=== PATIENT | male | born 1985 | race Caucasian/White ===

== ENCOUNTER 2025-04-09 08:42 | Emergency (ER) | payer SELFPAY ==
[2025-04-09 08:45] VITALS: BP 135/97; PULSE 104; RESP 20; TEMP 36.8; O2SAT 99
--- NOTE | 2025-04-09 08:46 | ED_ITS ---
HPI - URI/Sore Throat General Chief Complaint: Upper Respiratory Infection Stated Complaint: cough Time Seen by Provider: 04/09/25 08:45 Source: patient Mode of arrival: ambulatory Limitations: no limitations History of Present Illness HPI Narrative: patient presents with sore throat, stuffy nose, postnasal discharge and coughing started yesterday. Positive sick contact to at least 5 people who have similar symptoms in the last few days. He denies any fever or vomiting or abdominal pain or shortness of breath or chest pain or headache. Related Data Home Medications ?Medication ?Instructions ?Recorded ?Confirmed ?Last Taken ?Type No Home Medications 04/09/25 04/09/25 U nknown History Allergies Allergy/AdvReac Type Severity Reaction Status Date / Time No Known Allergies Allergy Verified 04/09/25 09:34 Review of Systems Review of Systems: All systems reviewed & are unremarkable except as noted in HPI and below Exam Narrative: General appearance: Well-developed, well-nourished Skin: Normal color Head: Normocephalic, nontraumatic Eyes: Clear conjunctiva ENT: Oropharynx normal, ears normal, nose normal Neck: Supple, nontender Chest and respiratory: Airway patent, no respiratory distress, no accessory muscle use Heart: Regular rate/rhythm Abdomen: Soft, nontender, no organomegaly, quiet bowel sounds Vascular: Normal peripheral pulses, normal capillary refill. Musculoskeletal: Normal range of motion, nontender back Neurologic: Alert and oriented ?3, [employer] is normal as tested, no gross motor deficit Course Vital Signs Vital signs: Vital Signs Temperature 36.8 C 04/09/25 08:45 Pulse Rate 104 H 04/09/25 08:45 Respiratory Rate 20 04/09/25 08:45 Blood Pressure 135/97 H 04/09/25 08:45 Pulse Oximetry 99 04/09/25 08:45 Oxygen Delivery Room Air 04/09/25 08:45 Temperature 36.8 C 04/09/25 08:45 Pulse Rate 104 H 04/09/25 08:45 Respiratory Rate 20 04/09/25 08:45 Blood Pressure 135/97 H 04/09/25 08:45 Pulse Oximetry 99 04/09/25 08:45 Oxygen Delivery Room Air 04/09/25 08:45 MDM - URI/Sore Throat MDM Narrative Medical decision making narrative: patient presents with upper respiratory infection like symptoms Tested positive for strep throat, tested negative for COVID flu and RSV. Patient received penicillin G1 point 2,000,000 unit IM prior to discharge Differential Diagnosis Differential diagnosis: Likely upper respiratory infection, viral infection and pharyngitis Medical Records Attestation: I reviewed the patient's medical records. Lab Data Attestation: I reviewed the patient's lab results. Labs: Lab Results 04/09/25 Range/Units 08:52 Influenza A (RT-PCR) Pending Influenza B (RT-PCR) Pending RSV (RT-PCR) Pending SARS-CoV-2 RNA (RT-PCR) Pending Group A Strep (PCR) Detected A (Negative) Critical Care Time Critical Care Time Critical Care Time: No Discharge Plan Discharge Clinical Impression: Sore, throat, streptococcal Patient Disposition: Home Condition: Stable Instructions: Strep Throat (DC) Additional Instructions: Return if symptoms are worsening , call your family physician for appointment, take Tylenol, ibuprofen as as needed for aches and pain, continue home medications. Patient Language: [place] Prescriptions: No Action No Home Medications Follow-up/Referrals: Rakesh Sim MD [Primary Care Provider, Internal Medicine] Stand Alone Forms: Work/School Release IP
[2025-04-09 09:24] LABS: Strep Group A RT-PCR DETECTED (Negative)
[2025-04-09 09:37] LABS: Influenza A QL RT-PCR Negative (Negative); Influenza B QL RT-PCR Negative (Negative); RSV RNA, RT-PCR Negative (Negative); SARS-CoV-2 RNA PCR Negative (Negative)
[2025-04-09] MEDS: PENICILLIN G BENZATHINE 1,200,000 UNITS/2 ML SYRINGE 1200000 UNITS IM (09:45)
== END 2025-04-09 09:53 | disposition home or self-care (01) ==
PROVIDERS: Emergency Provider Emergency Medicine; PCP Internal Medicine
DX: J02.0 Streptococcal pharyngitis (principal); Z20.822 Contact with and (suspected) exposure to COVID-19
CPT/HCPCS: 87637; 87651; 96372; 99283; J0561